=== PATIENT | female | born 1955 | race Two or more races ===

== ENCOUNTER → 2019-07-24 | Outpatient (CLI) | payer MEDICARE, BC ==
[2019-07-24 16:56] VITALS: BP 151/102; PULSE 108; RESP 16; TEMP 98; BMI 19.8
--- NOTE | 2019-07-24 18:34 | P.GSHP ---
History of Present Illness H&P Date: 07/24/19 Chief Complaint: Core biopsy proven DCIS left breast, and invasive T1 breast cancer Kandi is a 63-year-old white female who 12 years ago status post a right breast lumpectomy, axillary node sampling, for an invasive carcinoma. She then underwent radiation therapy and chemotherapy. She did not take any hormonal therapy. She has done well until recently when she had a 10 mammogram and 1020 319 which revealed in the area of concern in the left breast for which an ultrasound was performed. On the ultrasound there were 2 areas of concern and core biopsy of an area at 10:00 and an area at 12:00 was performed. The area at 10:00 revealed invasive ductal carcinoma with lobular features as well as ductal carcinoma in situ, the area at 12:00 revealed a fibroadenoma. She has not had any lumps or masses in her breasts. No nipple discharge or skin changes. No history of any trauma to her breast. Family history: patient: right breast cancer maternal aunt: breast cancer Hormonal History: menarche: 10 G0 menopause: chemo triggered at 51 BCP: none hormones: none Surgical history: 1. Right lumpectomy and axillary biopsy 2. Tonsillectomy Medical history: 1.syncope work up negative ? hypoglycemia Social History: smoke: none alcohol: none drugs: none - Constitutional Constitutional: Denies chills, Denies fever - EENT Eyes: denies blurred vision, denies pain Ears: bilateral: tinnitus Ears, nose, mouth and throat: Denies headache, Denies sore throat - Breasts Breasts: bilateral: as per HPI - Cardiovascular Cardiovascular: Denies chest pain, Denies shortness of breath - Respiratory Respiratory: Denies cough, Denies 7 - Gastrointestinal Comment: Pseudomembranous colitis following antibiotics for a tooth infection - Genitourinary (Female) Genitourinary: Denies dysuria, Denies hematuria - Menstruation Menstruation: Reports postmenopausal - Musculoskeletal Musculoskeletal: Denies myalgias - Integumentary Integumentary: Reports rash - Neurological Neurological: Denies numbness, Denies weakness - Psychiatric Psychiatric: Denies anxiety, Denies depression - Endocrine Endocrine: Denies fatigue, Denies weight change - Hematologic/Lymphatic Comment: none - Allergic/Immunologic Allergic/Immunologic: Reports as per HPI Past Medical History History of Any Multi-Drug Resistant Organisms: None Reported Smoking Status: Never smoker Medications and Allergies Home Medications Medication Instructions Recorded Confirmed Type No Known Home Medications 07/24/19 07/24/19 History Allergies Allergy/AdvReac Type Severity Reaction Status Date / Time Sulfa (Sulfonamide Allergy Mild Rash/Hives Unverified 07/24/19 16:59 Antibiotics) Surgical - Exam Vital Signs Temp Pulse Resp BP Pulse Ox 98.0 F 108 H 16 151/102 98 07/24/19 16:46 07/24/19 16:46 07/24/19 16:46 07/24/19 16:46 07/24/19 16:46 BMI 20.4 - General well developed, well nourished, no distress - Eyes normal ocular movement - ENT no hearing loss, no congestion - Neck no masses, trachea midline - Respiratory normal respiratory effort, clear to auscultation - Cardiovascular Rhythm: regular Heart Sounds: normal: S1, S2 - Abdomen Abdomen: soft, non tender, no guarding, no rigid, no rebound - Integumentary normal turgor - Neurologic no disoriented, no combative - Musculoskeletal normal gait, normal posture - Psychiatric oriented to time, oriented to person, oriented to place, speech is normal, memory intact breast exam: Right breast: Multi-positional exam without scar from prior lumpectomy, fibrocystic changes, no evidence of recurrent disease Right axilla: No adenopathy of concern Left breast: Mild ecchymosis in the upper inner quadrant related to prior biopsy, approximately 1 cm area of palpable at the 10 o'clock position consistent with the radiographic findings positive for invasive ductal carcinoma Fibrocystic changes no other dominant masses or nodules of concern Left axilla: No adenopathy of concern Results Mammogram and pathology results reviewed Assessment and Plan Assessment: Impression/plan: 1. New diagnosis left breast invasive ductal carcinoma ER/[place] positive HER-2/trevon negative 2. DCIS left breast 3. Prior right breast stage II breast cancer Plan: 1. Genetic testing if patient is high risk then we will consider bilateral mastectomy plus or minus reconstruction 2. Possible lumpectomy needle localization before, sentinel node biopsy, possible axillary node dissection 3. Presentation at tumor board I had a long discussion with the patient and her family regarding treatment options. These include sentinel node biopsy possible axillary node dissection. These also include possible lumpectomy, mastectomy plus or minus reconstruction. If she chooses a lumpectomy she will need radiation therapy. This couldn't benefits include bleeding infection reaction to the anesthetic. There is also risk of positive margins and if this were to happen she may need to have reexcision. We've also discussed skin sparing mastectomy and nipple sparing mastectomies possible options. At this time the patient would prefer to have a lumpectomy if genetic testing does not reveal she is at increased risk for development of cancer. Time spent approximately 60 minutes, greater than 50% face time. CC: Dr. Malhotra
--- NOTE | 2019-08-30 16:56 | P.PN ---
Subjective Progress Note Date: 08/30/19 Kandi is a 63-year-old white female who 12 years ago status post a right breast lumpectomy, axillary node sampling, for an invasive carcinoma. She then underwent radiation therapy and chemotherapy. She did not take any hormonal therapy. She has done well until recently when she had a 10 mammogram and 1020 319 which revealed in the area of concern in the left breast for which an ultrasound was performed. On the ultrasound there were 2 areas of concern and core biopsy of an area at 10:00 and an area at 12:00 was performed. The area at 10:00 revealed invasive ductal carcinoma with lobular features as well as ductal carcinoma in situ, the area at 12:00 revealed a fibroadenoma. She has not had any lumps or masses in her breasts. No nipple discharge or skin changes. No history of any trauma to her breast. The patients genetic testing was variant of uncertain significance. Family history: patient: right breast cancer maternal aunt: breast cancer Hormonal History: menarche: 10 G0 menopause: chemo triggered at 51 BCP: none hormones: none Surgical history: 1. Right lumpectomy and axillary biopsy 2. Tonsillectomy Medical history: 1.syncope work up negative ? hypoglycemia Social History: smoke: none alcohol: none drugs: none - Constitutional Constitutional: Denies chills, Denies fever - EENT Eyes: denies blurred vision, denies pain Ears: bilateral: tinnitus Ears, nose, mouth and throat: Denies headache, Denies sore throat - Breasts Breasts: bilateral: as per HPI - Cardiovascular Cardiovascular: Denies chest pain, Denies shortness of breath - Respiratory Respiratory: Denies cough, - Gastrointestinal Comment: Pseudomembranous colitis following antibiotics for a tooth infection - Genitourinary (Female) Genitourinary: Denies dysuria, Denies hematuria - Menstruation Menstruation: Reports postmenopausal - Musculoskeletal Musculoskeletal: Denies myalgias - Integumentary Integumentary: Reports rash - Neurological Neurological: Denies numbness, Denies weakness - Psychiatric Psychiatric: Denies anxiety, Denies depression - Endocrine Endocrine: Denies fatigue, Denies weight change - Hematologic/Lymphatic Comment: none - Allergic/Immunologic Allergic/Immunologic: Reports as per HPI Objective - Vital Signs Vital signs: Vital Signs Temp 98.0 F 07/24/19 16:46 Pulse 108 H 07/24/19 16:46 Resp 16 07/24/19 16:46 BP 151/102 07/24/19 16:46 Pulse Ox 98 07/24/19 16:46 - Exam BMI 20.4 - Constitutional General appearance: Present: average body habitus - EENT Eyes: Present: EOMI ENT: Present: hearing grossly normal - Neck Neck: Present: normal ROM - Respiratory Respiratory: bilateral: CTA - Cardiovascular Rhythm: regular Heart sounds: normal: S1, S2 - Gastrointestinal General gastrointestinal: Present: soft - Integumentary Integumentary: Present: normal turgor - Musculoskeletal Musculoskeletal: Present: gait normal - Psychiatric Psychiatric: Present: A&O x's 3, appropriate affect, intact judgment & insight - Additional findings Additional findings: breast exam: this: Multiple positional exam scar from prior lumpectomy well-healed, fibrocystic changes, no evidence of recurrent disease Right axilla: No adenopathy of concern Left breast: Mild ecchymosis upper inner quadrant related to prior biopsy proximally with some area of palpable change at 10:00 consistent with radiographic findings positive for invasive ductal cancer Fibrocystic changes no other dominant masses or nodules of concern Left axilla no adenopathy of concern Assessment and Plan Assessment: Impression/plan: 1. New diagnosis left breast invasive ductal carcinoma ER/[place] positive HER-2/trevon negative 2. DCIS left breast 3. Prior right breast stage II breast cancer Plan: 1. Genetic testing if patient is high risk then we will consider bilateral mastectomy plus or minus reconstruction/testing variant of unknown significance 2. Possible lumpectomyleft breast needle localization before, sentinel node biopsy, possible axillary node dissection 3. Presentation at tumor board I had a long discussion with the patient and her family regarding treatment options. These include sentinel node biopsy possible axillary node dissection. These also include possible lumpectomy, mastectomy plus or minus reconstruction. If she chooses a lumpectomy she will need radiation therapy. This couldn't benefits include bleeding infection reaction to the anesthetic. There is also risk of positive margins and if this were to happen she may need to have reexcision. We've also discussed skin sparing mastectomy and nipple sparing mastectomies possible options. At this time the patient would prefer to have a lumpectomy if genetic testing does not reveal she is at increased risk for development of cancer.
== END | disposition home or self-care (01) ==
LOC: WWCWWP 16:39
PROVIDERS: ATTEND Surgery
DX: Z53.9 Procedure and treatment not carried out, unspecified reason (principal)

== ENCOUNTER 2019-09-03 08:35 | Day surgery (SDC) | payer MEDICARE, BC ==
[2019-09-02 08:30] VITALS: BMI 19.8
[~2019-09-03 08:35] MED LIST: DEXAMETHASONE SOD PHOSPHATE 10 MG/ML 1 ML VIAL IV ONE; HEPARIN SODIUM,PORCINE 5,000 UNIT/ML 1 ML VIAL SQ ONE; HYDROmorphone 0.5 MG/0.5 ML SYRINGE IVP PRN; LACTATED RINGERS 1,000 ML IV SCH; LIDOCAINE 1% 20 ML VIAL (10MG/ML) FOR IV START INTRADERMA PRN; MIDAZOLAM 2 MG/2 ML VIAL IV PRN; ONDANSETRON 4 MG/2 ML VIAL IVP ONE; Pre Op ABX Message 1 EACH MISC MISCELLANE ONE; SCOPOLAMINE 1.5MG/72HR PATCH TRANSDERM ONE
[2019-09-03] MEDS ORDERED: LIDOCAINE 1% INJ 10MG/ML (20 ML MDV) SQ ONE (10:08)
[2019-09-03] MEDS ORDERED: LIDOCAINE 1% INJ 10MG/ML (20 ML MDV) ONE (11:23)
[2019-09-03] MEDS ORDERED: PROPOFOL 10 MG/ML 20 ML VIAL IV ONE (11:23)
[2019-09-03] MEDS ORDERED: fentaNYL (PF) 50 MCG/ML 2 ML AMP ONE (11:23)
[2019-09-03] MEDS ORDERED: ePHEDrine SULFATE/0.9% NACL/PF 50 MG/5 ML SYRINGE IV ONE (11:23)
--- NOTE | 2019-09-03 12:01 | P.NAPBC ---
NAPBC Queries - NAPBC Queries Was patient's case review presented at [facility] tumor board? If no, comment.: Yes Was patient's pathology reviewed at [facility]? If no, comment.: Yes Was breast conservation surgery offered? If no, comment.: Yes Was sentinel node biopsy offered? If no, comment.: Yes Was diagnosis confirmed by percutaneous core biopsy? If no, comment.: Yes Is patient mastectomy patient?: No Was a preop referral to reconstructive surgeon offered?: Yes Clinical Stage: Stage 1A [id number]-
--- NOTE | 2019-09-03 12:17 | NM ---
EXAMINATION TYPE: NM sentinel node injection DATE OF EXAM: 09/03/2019 COMPARISON: Outside diagnostic left breast mammogram dated 07/18/2019 HISTORY: Left breast cancer with request for sentinel lymph node injection. TECHNIQUE AND FINDINGS: The procedure of sentinel lymph node injection was explained to the patient. The benefits, alternatives, and risks were discussed. An informed consent was then obtained. Overlying skin is cleaned with sterile alcohol. Following this, 500 uCi Tc99m Tilmanocept was inject ed in the upper outer aspect of the left nipple intradermally. The patient tolerated the procedure well without any immediate complication. The patient was kept in the radiology department for short stay after the procedure and then taken to surgery for surgical p rocedure what is presumed intraoperative gamma probe will be used for sentinel lymph node detection. IMPRESSION: Left breast radiotracer injection for sentinel node localization as above.
[2019-09-03] MEDS ORDERED: LACTATED RINGERS 1,000 ML IV ONE (13:22)
--- NOTE | 2019-09-03 13:52 | MM ---
EXAMINATION TYPE: MG pre op needle loc LT, MG surgical specimen LT DATE OF EXAM: 09/03/2019 COMPARISON: Outside diagnostic left breast mammogram dated 07/18/2019 CLINICAL HISTORY: Biopsy-proven left breast cancer at an outside institution. TECHNIQUE: Needle localization with wire placement and surgical excision of area of concern in the le ft breast. FINDINGS: The procedure of needle localization with wire placement and than surgical excision was exp lained to the patient. Benefits, alternatives, and risks were discussed. An informed consent was th en obtained. Preprocedural timeout was performed. The shortest pathway for procedure was chosen. Shortest pathway was medial to lateral approach. The overlying skin was prepped and draped in usual sterile fashion. Lidocaine buffered with bicarbonate was used as anesthetic into the skin and subcutaneous tissue up to the level of area of concern. A 7 cm needle was used. It was placed via a medial to lateral approach under mammographic guidance. Pineda bsequent 90 degrees mammogram show the needle to be in satisfactory position relative to the targeted area. At this point, wire was placed and the needle was withdrawn. The wire was fixed to patient's skin. Images were marked for surgeon. The patient tolerated the procedure well without any immediate complication. The patient was kept in the radiology department for short stay after the procedure and then taken to surgery for surgical e xcision. Targeted coil-shaped biopsy marker and wire are identified in specimen mammogram. The ronald ent was kept in hospital for short stay after the procedure and then discharged home in stable condit ion. IMPRESSION: Successful, uncomplicated needle localization with wire placement and surgical excision o f a coil-shaped biopsy marker representing the biopsy-proven left breast cancer in the left breast, f ull pathology results to follow.
--- NOTE | 2019-09-03 14:46 | P.OP ---
Date of Procedure: 09/03/19 Preoperative Diagnosis: left breast invasive carcinoma Postoperative Diagnosis: same Procedure(s) Performed: [place] node biopsy, eccentric donut mastopexy with lumpectomy of the localized area of concern and tissue transfer Anesthesia: JOSE Surgeon: Bhumika Reese Estimated Blood Loss (ml): 30 IV fluids (ml): 1,000 Pathology: other (sentinal noce, breast tissue, lumpectomy) Condition: stable Disposition: same day Indications for Procedure: core biopsy-proven left breast cancer Operative Findings: very small sentinel node, very dense breast tissue Description of Procedure: The patient is a 63-year-old white female with core biopsy-proven left breast cancer. After preoperative discussion she has opted for a needle localization and lumpectomy and sentinel node biopsy. Preoperatively she was initially seen in radiology where needle localization was performed, and Lymphokine was injected in the periareolar area. In the preoperative area the patient was again evaluated. She was noted to have grade 2 ptosis. She has asymmetry already associated with a prior right breast lumpectomy with the right nipple being higher than the left. the right breast is also slightly smaller than the left. She was assessed in the upright position. Skin markings were placed bilaterally with measurement and marking of the intended position of the nipple areolar complex. The patient was brought to the operating room. Following induction of anesthesia the axilla was approached. There was increased radioactivity in the axilla such that it was not felt that methylene blue injection was necessary. The patient was prepped and draped in a sterile fashion. Both breasts were prepped so that comparison could be made. Using the neoprobe the area of greatest radioactivity in the axilla was identified. A small incision was made over this area. Dissection was performed into the axilla. The tissues were grasped using an Allis clamp. The area of greatest radioactivity was noted to b e present in this tissue. This was removed using a Harmonic scalpel. Interrogation of the specimen revealed a 10 seconds radioactivity count of 1770. Background count at 10 seconds was 33. No palpable adenopathy of concern was identified. The axilla was well irrigated. After being assured that hemostasis was attained the deep tissues were closed with 3-0 Vicryl suture. The skin was closed with 4-0 Monocryl subcuticular suture. A nylon skin suture was placed. The patient tolerated this portion of the procedure in stable condition The lumpectomy was then performed. A 42 mm periareolar circular marker (SoundRoadie cutter) was used to michael the boundary of the new aerola. Incision was made in and the skin was scored. A second incision was made around the nipple areolar complex in an eccentric fashion. The skin within the doughnut was scored and then it was de-epithelialized. A curvilinear incision was made within the de-epithelialized zone adjacent to the planned partial mastectomy. Dissection was then performed in the anterior mammary fascia towards the targeted lesion. Circumferential dissection around the targeted lesion was performed. This was facilitated using the needle localization needle. The specimen was removed and oriented. The breast tissue was very dense. Specimen radiograph confirmed the target was removed and that margins were taken. The dissection posteriorly was onto the pectoralis major muscle. Additional margins were obtained at all sites anterior, superior, inferior, medial and lateral and the new external surfaces were marked. The wound was well irrigated. Hemostasis was secured and surgical clips were placed. Dissection was then performed at the deep layer of the breast along the pectoralis major muscle. Approximately 50 cm of tissue was dissected along this plane to mobilize the glandular breast tissue to allow for repair of the defect from the partial mastectomy. The defect was then closed in a [id number] fashion using a 3-0 Vicryl suture. This allowed for reshaping of the breast mound to repair the defect. The skin was then closed using 5-0 [place]-Cefreino in a wagon wheel fashion to decrease the size of the skin defect and approximate this to the nipple aerolar complex.. The periareolar complex was then reapproximated using 4-0 Monocryl. Following this 4-0 nylon skin suture was placed. This was secondary to the fact that the patient is ALLERGIC to to surgical glue and or Steri-Strips. The nipple area complex is still somewhat lower than that on the right side. The patient will receive radiation therapy and there is some anticipation that the breast was shrink and the final nipple areolar complex may be a different location. If wished by the patient we may be able to modify this at a later time after radiation is complete. All instrument and sponge counts were correct at the end of the case. The patient tolerated the procedure in stable condition.
[2019-09-03 14:47] VITALS: TEMP 97.1
--- NOTE | 2019-09-03 14:48 | P.DS ---
Providers Attending physician: Bhumika Reese Primary care physician: Gm Malhotra Plan - Discharge Summary Discharge Rx Participant: Yes New Discharge Prescriptions: No Action No Known Home Medications Discharge Medication List No Known Home Medications 07/24/19 [History] Follow up Appointment(s)/Referral(s): Bhumika Reese MD [STAFF PHYSICIAN] - 10 Days Activity/Diet/Wound Care/Special Instructions: do not drive for 24 hours after discharge, do not drive if taking opiod pain medication may shower after 48 hours wear bra at all times unless showering Discharge Disposition: HOME SELF-CARE
[2019-09-03 15:08] VITALS: RESP 16
[2019-09-03] MEDS ORDERED: hydrALAZINE HCL 20 MG/ML 1 ML VIAL IV ONE (16:15)
[2019-09-03 17:11] VITALS: BP 138/85; PULSE 100
== END 2019-09-03 17:18 | disposition home or self-care (01) ==
LOC: OR 08:35
PROVIDERS: ATTEND Surgery
DX: C50.912 Malignant neoplasm of unspecified site of left female breast (principal); D24.2 Benign neoplasm of left breast; Z80.3 Family history of malignant neoplasm of breast
CPT/HCPCS: 88305; 88342; 88307; 88341; 76098; 19281; 38792; 19301; 38525; A9520; J0360; J1644; J1100; J2405; J2001; J3010; J2704

== ENCOUNTER → 2019-09-20 | Outpatient (CLI) | payer MEDICARE, BC ==
[2019-09-20 08:54] VITALS: BP 178/81; PULSE 77; RESP 18; TEMP 98.2
--- NOTE | 2019-09-20 09:38 | P.PN ---
Subjective Progress Note Date: 09/20/19 Principal diagnosis: Left breast cancer The patient is a 63-year-old white female who is status post left breast lumpectomy and sentinel node biopsy on [id number]. Her pathology revealed moderately differentiated adenocarcinoma consistent with invasive ductal cancer with lobular features. Background parenchyma showed prior biopsy artifact as well as atypical duct hyperplasia and areas of ductal carcinoma in situ. The tumor involved the purple ink cauterized margin of excision. The posterior margin however was on the muscle of the chest wall andfurther resection could be done. Additionally the sentinel node biopsy revealed 20 tumor cells in the subcapsular area of the lymph node. At the time of surgery precaution nearly additional margins were obtained. On the additional margins the new inferior margin revealed infiltrating duct carcinoma with lobular features contacting the inferior margin. The anterior margin was negative the lateral margin showed a fibroadenoma the medial margin was negative the superior margin was negative however it appeared that on the new superior margin there was some tumor noted at the lateral aspect. The tumor was 0.5 mm away from the plaque and cauterized surface which was the superior margin. These findings were discussed in detail with the patient. It is felt that the surest treatment for complete tumor removal would be mastectomy. The patient however wishes to preserve her breast if at all possible. Therefore we will do a repeat excision of the inferior and lateral margins. She understands that if there is tumor positive at the margins at this resection that a mastectomy is definitely her best option. We have also discussed the option of seeing a plastic surgeon and undergoing mastectomy with reconstruction and again at this time the patient wishes to preserve her breast if possible. I discussed with the patient that the prior excision was done through a donut mastopexy with tissue transfer and her cosmetic result after reexcision will not be the same as it is now, however the patient wishes to try to preserve her breast if possible. I also have concerns and that this is infiltrating carcinoma with lobular features and she does have some DCIS also noted which may indicated that the potential for multifocal disease, however at this time she is wishes to try to preserve her breast. Objective - Vital Signs Vital signs: Vital Signs Temp 98.2 F 09/20/19 08:52 Pulse 77 09/20/19 08:52 Resp 18 09/20/19 08:52 BP 178/81 09/20/19 08:52 Pulse Ox 98 09/20/19 08:52 Intake & Output 09/19/19 09/20/19 09/20/19 18:59 06:59 18:59 Weight 47.627 kg - Exam BMI 19.8 - Constitutional General appearance: Present: thin - EENT Eyes: Present: EOMI ENT: Present: hearing grossly normal - Respiratory Respiratory: bilateral: CTA - Cardiovascular Rhythm: regular Heart sounds: normal: S1, S2 - Integumentary Integumentary Comment(s): Incision clean and dry left axilla and periareolar area Integumentary: Present: normal turgor - Musculoskeletal Musculoskeletal: Present: gait normal - Psychiatric Psychiatric: Present: A&O x's 3, appropriate affect - Additional findings Additional findings: Incision clean and dry left axilla and periareolar area Assessment and Plan Assessment: Impression: 1. Left breast lumpectomy and sentinel node biopsy on [id number] 2. Patient with infiltrating ductal carcinoma with lobular features contacting inferior margin and questionably lateral margin, close to superior margin, ductal carcinoma in situ noted to be present in the initial lumpectomy specimen. Tumor also involved the posterior cauterized margin of excision however this was on the pectoralis muscle and further excision could not be performed. 3. [place] node positive subcapsular disease, patient will require axillary radiation Plan: 1. Reexcision lumpectomy site left breast 2. Appointment with radiation oncology Risk and benefits of procedure discussed in detail with the patient. The patient understands that if the margins are positive on reexcision that mastectomy would be indicated. We've also discussed the possibility that this is multifocal disease, the patient however wishes another attempt at breast conservation. She has been given the option of seeing a plastic surgeon and at this time she wishes to avoid mastectomy if at all possible. CC: Dr. Malhotra Time with Patient: Greater than 30
== END ==
LOC: WWCWWP 08:24
PROVIDERS: ATTEND Surgery
DX: Z53.9 Procedure and treatment not carried out, unspecified reason (principal)

== ENCOUNTER 2019-09-24 07:42 | Day surgery (SDC) | payer MEDICARE, BC ==
[2019-09-19 09:41] VITALS: BMI 19.8
[2019-09-24] MEDS ORDERED: PROPOFOL 10 MG/ML 20 ML VIAL IV ONE (08:27)
[2019-09-24] MEDS ORDERED: MIDAZOLAM 2 MG/2 ML VIAL ONE (08:27)
[2019-09-24] MEDS ORDERED: LIDOCAINE 1% INJ 10MG/ML (20 ML MDV) ONE (08:27)
[2019-09-24] MEDS ORDERED: ePHEDrine SULFATE/0.9% NACL/PF 50 MG/5 ML SYRINGE IV ONE (08:27)
[2019-09-24] MEDS ORDERED: fentaNYL (PF) 50 MCG/ML 2 ML AMP ONE (08:27)
[2019-09-24] MEDS ORDERED: ceFAZolin 1,000 MG VIAL ONE (08:27)
[2019-09-24] MEDS ORDERED: SODIUM CHLORIDE 0.9% 100 ML with ceFAZolin 2,000 MG IV ONE ×2 (08:55)
[2019-09-24] MEDS ORDERED: LIDOCAINE 1% INJ 10MG/ML (20 ML MDV) SQ ONE ×2 (08:59→10:05)
--- NOTE | 2019-09-24 10:20 | P.OP ---
Date of Procedure: 09/24/19 Preoperative Diagnosis: Left breast lumpectomy, positive inferior margin, close superior margin Postoperative Diagnosis: Same Procedure(s) Performed: Reexcision lumpectomy Anesthesia: JOSE Surgeon: Bhumika Reese Estimated Blood Loss (ml): 5 IV fluids (ml): 750 Pathology: other (breast tissue) Condition: stable Disposition: same day Indications for Procedure: Positive surgical margin inferiorly after left breast lumpectomy. Operative Findings: Dense breast tissue Description of Procedure: The patient is status post lumpectomy of the left breast for an invasive ductal carcinoma with lobular features. Excision had been performed at the time of the initial lumpectomy and despite this the inferior margin was positive. The superior margin was close. The posterior margin was positive however posterior margin was on the pectoralis muscle, therefore the discussed this with the patient we discussed mastectomy versus attempt at reexcision and she wished attempt at reexcision. The pathology was reviewed with the pathologist. Again the only margin positive was the inferior margin however the superior margin was close and we therefore determined to re-excise both inferior and superior m argins. The patient was taken to the operating room and following induction of general anesthesia the left breast was prepped and draped in a sterile fashion. Sutures in the periareolar area were removed. In the superior aspect of the aerola an incision was made and carried through the skin and subcutaneous tissue into the area of the prior lumpectomy. After entering this site we were able to identify where the 2 pillars of tissue had been brought together from medial to lateral. The tissue pillars were . The inferior aspect of this area was excised. The superior aspect of this area was excised as well. The inferior margin was painted green, and the new superior margin was painted black. After we were assured that hemostasis was attained the wound was well irrigated. Posterior dissection was onto the pectoralis muscle. The wound was well irrigated. Titanium clips were placed. Surgicel and pyriform was placed. The residual medial and lateral pillars of tissue were reapproximated using 3-0 Vicryl suture. The subcutaneous tissues were closed with 3-0 Vicryl suture. 4-0 [place] suture in a regular fashion was used to reapproximate the periareolar incision. A 4-0 Monocryl was used to reapproximate the subcu cuticular tissue. Externally a 4-0 nylon suture was placed. All instrument and sponge counts were correct at the end of the case. The patie nt tolerated the procedure in stable condition. The excised specimens were sent for pathology. A sterile dressing was placed as well as a surgical bra.
--- NOTE | 2019-09-24 10:22 | P.DS ---
Providers Attending physician: Bhumika Reese Primary care physician: Gm Malhotra Plan - Discharge Summary Discharge Rx Participant: Yes New Discharge Prescriptions: No Action No Known Home Medications Discharge Medication List No Known Home Medications 07/24/19 [History] Follow up Appointment(s)/Referral(s): Bhumika Reese MD [STAFF PHYSICIAN] - 1 Week Activity/Diet/Wound Care/Special Instructions: be sure tolerating diet prior to dc do not drive today or if taking narcotic pain medication may shower after 48 hours wear bra at all times Discharge Disposition: HOME SELF-CARE
[2019-09-24 10:26] VITALS: TEMP 96.8
[2019-09-24 11:15] VITALS: BP 152/79; PULSE 95; RESP 17
== END 2019-09-24 11:59 | disposition home or self-care (01) ==
LOC: OR 07:42
PROVIDERS: ATTEND Surgery
DX: C50.912 Malignant neoplasm of unspecified site of left female breast (principal); N60.12 Diffuse cystic mastopathy of left breast; I34.1 Nonrheumatic mitral (valve) prolapse; Z88.2 Allergy status to sulfonamides; Z88.3 Allergy status to other anti-infective agents; Z91.048 Other nonmedicinal substance allergy status
CPT/HCPCS: 19301; 88307; J2250; J1644; J1100; J2405; J0690; J2001; J3010; J2704

== ENCOUNTER → 2019-10-03 | Outpatient (CLI) | payer MEDICARE, BC ==
[2019-10-03 13:10] VITALS: BP 181/100; PULSE 88; RESP 16; TEMP 98.3
--- NOTE | 2019-10-03 13:40 | P.PN ---
Progress Note - Text Tg is a 63 year old [place] female with a history of a Stage IA left breast cancer. She had a lumpectomy on 09-03-19. Her pathology revealed a positive inferior and close superior margin. She had re-excision on 09-24-19. Her new superior and inferior margins were negative. We have discussed the fact that this is in infiltrating ductal carcinoma with lobular features making it somewhat difficult to identify and the possibility of a mastectomy. At the present time many would prefer to have conservative surgery if possible. Addit ionally we have talked the fact that the posterior margin was positive but this was on the pectoralis muscle and will be treated with radiation. She also had approximately 20 cells of tumor noted in a sentinel lymph node which also would necessitate treatment of the axilla with radiation therapy. The lesion was ER/SD positive. She is following with medical oncology to determine if any chemotherapy would be recommended. She will also follow with radiation oncology. Physical exam: Left breast incision clean and dry Heart: Regular rate and rhythm Lungs: Clear Impression: 1. Stage IA left breast cancer, margins at this time are negative with the exception of posterior margin which is on pectoralis muscle 2. [place] node with 20 cells of tumor 3. Patient incision healing well Plan: 1. Follow-up medical oncology 2. Follow up radiation oncology 3. We've discussed that the lesion is a infiltrating ductal carcinoma with lobular features making it somewhat difficult to follow. We have offered the option of mastectomy plus or minus reconstruction at this time the patient wishes to be followed conservatively. She will follow up here in 3 months. She will follow with medical and radiation oncology in the interim. CC: Dr. Malhotra
== END ==
LOC: WWCWWP 12:25
PROVIDERS: ATTEND Surgery
DX: Z53.9 Procedure and treatment not carried out, unspecified reason (principal)